=== PATIENT | male | born 1945 | race Caucasian/White ===

== ENCOUNTER 2021-01-17 06:58 | Day surgery (SDC) | payer OTHER ==
[2021-01-14 12:50] LABS: BASOPHILS % (AUTO) 0.7 % (0.0-5.0); EOSINOPHILS % (AUTO) 1.4 % (0.0-8.0); HEMATOCRIT 49.7 % (42-54); LYMPHOCYTES % (AUTO) 24.5 % (21.0-51.0); MEAN CORPUSCULAR HEMOGLOBIN 30.3 pg (27.0-33.0); MEAN CORPUSCULAR HGB CONC 33.4 g/dL (32.0-36.0); MEAN CORPUSCULAR VOLUME 90.9 fL (79-99); MONOCYTES % (AUTO) 7.9 % (3.0-13.0); NEUTROPHILS % (AUTO) 65.1 % (40.0-77.0); PLATELET COUNT (AUTO) 219 K/uL (130-400); RED BLOOD CELL COUNT(AUTO) 5.47 MIL/uL (4.50-6.20); RED CELL DISTRIBUTION WIDTH 12.7 % (11.0-15.5); WHITE BLOOD COUNT (AUTO) 7.4 K/uL (4.8-10.8)
[2021-01-14 12:59] LABS: CREATININE 1.3 mg/dL (0.5-1.5); POTASSIUM 4.8 mmol/L (3.5-5.1)
[2021-01-16 13:19] VITALS: BP 116/86
[~2021-01-17] VITALS: Ht 182.9 cm; Wt 95.9 kg
[2021-01-17] VITALS (11 sets, daily range): BP systolic 85–113; BP diastolic 50–76
[~2021-01-17 06:58] MED LIST: APIX5TAB PO; ATOR10TA69 PO; DRON400T2 PO; METO-391 PO; SERT-440 PO; SODIUM CHLORIDE 0.9% 1000ML 1,000 ML IV SCH
[2021-01-17] MEDS ORDERED: PROPOFOL 10 MG/ML 20ML VIAL IV ONE (08:59)
[2021-01-17] MEDS ORDERED: SUCCINYLCHOLINE 200MG/10ML SYR ONE (09:00)
[2021-01-17] MEDS ORDERED: GLYCOPYRROLATE 1 MG/5 ML SYRINGE ONE (09:00)
== END 2021-01-17 10:00 | disposition home or self-care (01) ==
LOC: DAH 06:58
PROVIDERS: ATTEND Internal Medicine Cardiovascular Disease
DX: I48.19 Other persistent atrial fibrillation (principal)
CPT/HCPCS: 36415; 80048; 85025; 92960; 93005 ×2; A4215; A4216; A4221; A4222; A4223 ×3; A4606; A4663; J0330; J2704; J3490